=== PATIENT | male | born 1960 | race Caucasian/White ===

== ENCOUNTER 2020-05-18 19:39 | Emergency (ER) | payer OTHER ==
[~2020-05-18] VITALS: Ht 175.3 cm; Wt 106.6 kg
[2020-05-18] MEDS ORDERED: BENICAR20 MG (19:59)
== END 2020-05-19 11:13 | disposition home or self-care (01) ==
LOC: ER 19:39
DX: K57.30 Diverticulosis of large intestine without perforation or abscess without bleeding (principal); Z03.818 Encounter for observation for suspected exposure to other biological agents ruled out